=== PATIENT | male | born 1945 | race Two or more races ===

== ENCOUNTER 2022-08-31 12:19 | Emergency (ER) | payer MEDICARE ==
--- NOTE | 2022-08-31 12:34 | NUR ---
CALLED TO TRIAGE, NO RESPONSE
--- NOTE | 2022-08-31 13:05 | NUR ---
CALLED IN ED WAITING ROOM, NO RESPONSE LEFT WITHOUT BEING TRIAGE
== END 2022-08-31 13:06 | disposition left against medical advice (07) ==
LOC: ER 12:24
DX: Z53.21 Procedure and treatment not carried out due to patient leaving prior to being seen by health care provider (principal)